=== PATIENT | male | born 1955 | race Caucasian/White ===

== ENCOUNTER 2021-05-24 12:31 | Outpatient (CLI) | payer MEDICARE, BC ==
[~2021-05-24 12:31] MED LIST: Iopamidol 370 76% 100 ML VIAL ONE
[2021-05-24 13:59] LABS: Estimated GFR-MDRD - POC Greater than 90
== END 2021-05-24 12:32 | disposition home or self-care (01) ==
LOC: CT 12:31
PROVIDERS: ATTEND Student in an Organized Health Care Education/Training Program
DX: R59.0 Localized enlarged lymph nodes (principal); M47.812 Spondylosis without myelopathy or radiculopathy, cervical region; Z98.1 Arthrodesis status
CPT/HCPCS: 70491; 82565; Q9967

== ENCOUNTER 2021-07-05 12:30 | Outpatient (CLI) | payer MEDICARE, BC | END 2021-07-05 12:31 | disposition home or self-care (01) | LOC: PET 12:30 | PROVIDERS: ATTEND Internal Medicine Hematology & Oncology | DX: C81.11 Nodular sclerosis Hodgkin lymphoma, lymph nodes of head, face, and neck (principal); R59.0 Localized enlarged lymph nodes; Z79.899 Other long term (current) drug therapy | CPT/HCPCS: 78815; A9552 ==

== ENCOUNTER 2021-07-06 11:05 | Day surgery (SDC) | payer MEDICARE, BC ==
[2021-07-06] MEDS ORDERED: diphenhydrAMINE 25 MG CAP ONE (11:44)
[2021-07-06] MEDS ORDERED: Acetaminophen 500 MG TAB ONE (11:44)
[2021-07-06 14:29] VITALS: BP 158/68; TEMP 98.5
== END 2021-07-06 14:29 | disposition home or self-care (01) ==
LOC: ONC/OP 11:05
PROVIDERS: ATTEND Internal Medicine Hematology & Oncology
PROC: 30233N1 Transfusion of Nonautologous Red Blood Cells into Peripheral Vein, Percutaneous Approach (ICD-10-PCS; principal; 2021-07-06)
DX: D64.9 Anemia, unspecified (principal); D69.6 Thrombocytopenia, unspecified
CPT/HCPCS: 36430; 86850; 86900; 86901; P9016

== ENCOUNTER 2021-07-11 09:00 | Day surgery (SDC) | payer MEDICARE, BC ==
[2021-07-11] MEDS ORDERED: Acetaminophen 500 MG TAB ONE (09:29)
[2021-07-11] MEDS ORDERED: diphenhydrAMINE 25 MG CAP ONE (09:29)
[2021-07-11 11:52] VITALS: TEMP 98
[2021-07-11 14:04] VITALS: BP 118/58
== END 2021-07-11 14:04 | disposition home or self-care (01) ==
LOC: ONC/OP 09:00
PROVIDERS: ATTEND Internal Medicine Hematology & Oncology
PROC: 30233N1 Transfusion of Nonautologous Red Blood Cells into Peripheral Vein, Percutaneous Approach (ICD-10-PCS; principal; 2021-07-11)
DX: D64.9 Anemia, unspecified (principal); D69.6 Thrombocytopenia, unspecified
CPT/HCPCS: 36430; 86850; 86900; 86901; P9016

== ENCOUNTER 2021-07-13 09:38 | Outpatient (CLI) | payer MEDICARE, BC ==
[2021-07-13 19:03] LABS: SARS-CoV-2 PCR by NAA Not Detected (NotDetected)
== END 2021-07-13 09:39 | disposition home or self-care (01) ==
LOC: LABBT 09:38
PROVIDERS: ATTEND Surgery
DX: C81.90 Hodgkin lymphoma, unspecified, unspecified site (principal); Z20.822 Contact with and (suspected) exposure to COVID-19
CPT/HCPCS: U0003; U0005; 80053

== ENCOUNTER 2021-07-16 11:01 | Day surgery (SDC) | payer MEDICARE, BC ==
[2021-07-12 10:53] VITALS: BMI 23.8
[2021-07-16] MEDS ORDERED: fentaNYL Citrate/PF 100 MCG/2 ML SYRINGE ONE (11:38)
[2021-07-16] MEDS ORDERED: PROPOFOL 40 ML ONE (11:39)
[2021-07-16] MEDS ORDERED: EPINEPHrine 1 MG/ML AMP ONE (11:47)
[2021-07-16] MEDS ORDERED: Bupivacaine 0.25% 10 ML VIAL ONE (11:47)
[2021-07-16] MEDS ORDERED: ceFAZolin (BATCH) 2 GM/100 ML BAG ONE (11:59)
== END 2021-07-16 14:10 | disposition home or self-care (01) ==
LOC: SDC 11:01
PROVIDERS: ATTEND Surgery
PROC: 0JH60WZ Insertion of Totally Implantable Vascular Access Device into Chest Subcutaneous Tissue and Fascia, Open Approach (ICD-10-PCS; principal; 2021-07-16)
PROC: 02HV33Z Insertion of Infusion Device into Superior Vena Cava, Percutaneous Approach (ICD-10-PCS; 2021-07-16)
DX: C81.91 Hodgkin lymphoma, unspecified, lymph nodes of head, face, and neck (principal); I10 Essential (primary) hypertension; I25.10 Atherosclerotic heart disease of native coronary artery without angina pectoris; F10.11 Alcohol abuse, in remission; Z87.891 Personal history of nicotine dependence; Z79.02 Long term (current) use of antithrombotics/antiplatelets; Z79.82 Long term (current) use of aspirin; Z79.899 Other long term (current) drug therapy; Z95.1 Presence of aortocoronary bypass graft
CPT/HCPCS: 71045; C1788; J0171; J0690; J1642; J2704; S0020

== ENCOUNTER 2021-07-24 20:11 | Inpatient (IN) | payer MEDICARE, BC ==
[~2021-07-24 20:11] MED LIST changes: -Iopamidol 370 76% 100 ML VIAL ONE; +Iopamidol-370 76% 500 ML 1 ML ONE
[2021-07-24] MEDS ORDERED: Ondansetron PF 4 MG/2 ML Vial ONE (20:24)
[2021-07-24] MEDS ORDERED: Morphine 4 MG/ML VIAL ONE ×2 (20:24→21:23)
[2021-07-24 21:21] LABS: Hemoglobin 8.7 g/dL (14.0-18.0); Mean Corpuscular HGB CONC 31.2 g/dL (32.0-36.0); Mean Corpuscular Hemoglobin 29.3 pg (27.0-31.0); Mean Corpuscular Volume 93.8 fL (78.0-98.0); Mean Platelet Volume 7.4 fL (7.4-10.4); Platelet Count 356 thou/uL (130-400); RBC Distribution Width 14.7 % (11.5-14.5); Red Blood Cell (RBC) Count 2.98 mill/uL (4.70-6.10)
[2021-07-24 21:31] LABS: ALT (SGPT) 24 U/L (8-55); AST (SGOT) 16 U/L (5-34); Albumin 2.7 g/dL (3.4-4.8); Alkaline Phosphatase 204 U/L (40-110); Anion Gap 14 mmol/L (10-20); BUN (Urea Nitrogen) 17 mg/dL (8.4-25.7); Bilirubin, Total 0.6 mg/dL (0.2-1.2); Calc. Creatinine Clearance 0 mL/min (70-130); Carbon Dioxide 22 mmol/L (23-31); Chloride 97 mmol/L (98-107); Globulin 3.3 g/dL (2.4-3.5); Glucose 131 mg/dL (80-115); Potassium 3.7 mmol/L (3.5-5.1); Sodium 129 mmol/L (136-145)
[2021-07-24 21:38] LABS: Band 12 % (5-11); Hypochromia SLIGHT = 6-15 cells (100X) (0-5/hpf); Lymphocytes 7 % (21-51); MDiff Complete? YES; Metamyelocyte 4 % (0-0); Neutrophil 77 % (42-75); Platelet Morphology Comment Appears Adequate; Polychromasia SLIGHT = 2-3 cells (100X) (0-2/hpf)
[2021-07-24 21:41] LABS: Bilirubin Negative (Negative); Blood, Urine Negative (Negative); Clarity Clear (Clear); Glucose, Urine (Dipstick) Normal (Negative); Ketone, Urine Negative (Negative); Leukocyte Negative Leu/uL (Negative); Nitrite Negative (Negative); Protein, Urine (Dipstick) 20 mg/dL (Neg-Trace); Specific Gravity, Urine 1.034 (1.002-1.036); Urobilinogen Normal mg/dL (Less than 2); pH, Urine 5.5 (5.0-9.0)
[2021-07-24] MEDS ORDERED: HYDROmorphone 0.5 MG/0.5 ML SYRINGE ONE (22:00)
[2021-07-24] MEDS ORDERED: Dicyclomine 20 MG TAB ONE (22:36)
[2021-07-24] MEDS ORDERED: Sodium Chloride 0.9% 1,000 ML IV SCH (23:45)
[2021-07-24] MEDS ORDERED: Ondansetron PF 4 MG/2 ML Vial IVP PRN (23:45)
[2021-07-24] MEDS ORDERED: Ondansetron ODT 4 MG TAB SL PRN (23:45)
[2021-07-24] MEDS ORDERED: Acetaminophen 325 MG TAB PO PRN (23:45)
[2021-07-24] MEDS ORDERED: HYDROcodone/Acetaminophen 10/325 mg Tablet PO PRN (23:51)
[2021-07-24] MEDS ORDERED: Mag-Al Plus 1200 MG/1200 MG/120 MG/30 ML UDCUP PO PRN (23:55)
[2021-07-25] MEDS ORDERED: Lactated Ringer's 1,000 ML IV SCH ×2 (00:15→20:35)
[2021-07-25] MEDS: Lactated Ringer's 1,000 ML IV SCH ×2 (01:00→11:34)
[2021-07-25] MEDS ORDERED: diphenhydrAMINE 50 MG/ML VIAL IVP PRN (02:10)
[2021-07-25 06:05] LABS: Band 40 % (5-11); Hemoglobin 9.8 g/dL (14.0-18.0); Hypochromia SLIGHT = 6-15 cells (100X) (0-5/hpf); MDiff Complete? YES; Mean Corpuscular Hemoglobin 28.6 pg (27.0-31.0); Mean Corpuscular Volume 95.4 fL (78.0-98.0); Mean Platelet Volume 8.2 fL (7.4-10.4); Monocytes 3 % (0-10); Neutrophil 57 % (42-75); Platelet Count 381 thou/uL (130-400); Platelet Morphology Comment Appears Adequate; RBC Distribution Width 14.8 % (11.5-14.5); Red Blood Cell (RBC) Count 3.41 mill/uL (4.70-6.10); White Blood Cell (WBC) Count 24.1 thou/uL (4.8-10.8)
[2021-07-25 06:21] LABS: ALT (SGPT) 22 U/L (8-55); AST (SGOT) 12 U/L (5-34); Albumin 2.8 g/dL (3.4-4.8); Alkaline Phosphatase 200 U/L (40-110); Anion Gap 16 mmol/L (10-20); BUN (Urea Nitrogen) 16 mg/dL (8.4-25.7); Bilirubin, Total 0.7 mg/dL (0.2-1.2); Calc. Creatinine Clearance 104 mL/min (70-130); Calcium 9.5 mg/dL (7.8-10.44); Carbon Dioxide 21 mmol/L (23-31); Chloride 99 mmol/L (98-107); Globulin 3.3 g/dL (2.4-3.5); Glucose 100 mg/dL (80-115); Potassium 4.5 mmol/L (3.5-5.1); Protein, Total 6.1 g/dL (5.8-8.1); Sodium 131 mmol/L (136-145)
[2021-07-25] MEDS: Aspirin 81 mg Enteric Coated Tablet PO SCH (08:54)
[2021-07-25] MEDS: Clopidogrel Bisulfate 75 MG TAB PO SCH (08:54)
[2021-07-25] MEDS: Metoprolol Tartrate 100 MG TAB PO SCH ×2 (08:55→22:23)
[2021-07-25] MEDS: Dicyclomine 20 MG TAB PO SCH ×3 (08:55→16:54)
[2021-07-25] MEDS ORDERED: Enoxaparin Sodium 40 MG/0.4 ML SYRINGE SC SCH (09:00)
[2021-07-25] MEDS: HYDROcodone/Acetaminophen 10/325 mg Tablet PO PRN ×2 (09:43→15:06)
[2021-07-25] MEDS: Morphine 4 MG/ML VIAL SLOW IVP PRN ×2 (11:34→16:54)
[2021-07-25] MEDS ORDERED: Heparin 1,000 UNITS/ML VIAL ONE (12:33)
[2021-07-25] MEDS ORDERED: Lisinopril 20 MG TAB PO SCH (21:00)
[2021-07-25] MEDS ORDERED: Enoxaparin Sodium 80 MG/0.8 ML SYRINGE SC SCH (21:00)
[2021-07-25] MEDS ORDERED: Doxazosin Mesylate 4 MG TAB PO SCH (21:00)
[2021-07-25] MEDS ORDERED: Atorvastatin Calcium 40 MG TAB PO SCH (21:00)
[2021-07-25] MEDS ORDERED: Amlodipine 10 MG TAB PO SCH (21:00)
[2021-07-25 21:07] LABS: Lactic Acid 1.6 mmol/L (0.5-2.2)
[2021-07-25 21:12] LABS: ALT (SGPT) 14 U/L (8-55); AST (SGOT) 8 U/L (5-34); Albumin 2.6 g/dL (3.4-4.8); Alkaline Phosphatase 147 U/L (40-110); Anion Gap 15 mmol/L (10-20); BUN (Urea Nitrogen) 18 mg/dL (8.4-25.7); Bilirubin, Total 0.6 mg/dL (0.2-1.2); Calc. Creatinine Clearance 96 mL/min (70-130); Calcium 8.9 mg/dL (7.8-10.44); Carbon Dioxide 21 mmol/L (23-31); Chloride 97 mmol/L (98-107); Globulin 3.3 g/dL (2.4-3.5); Glucose 103 mg/dL (80-115); Potassium 4.8 mmol/L (3.5-5.1); Protein, Total 5.9 g/dL (5.8-8.1); Sodium 128 mmol/L (136-145)
[2021-07-25] MEDS ORDERED: Labetalol HCl 100 MG/20 ML VIAL SLOW IVP PRN (22:19)
[2021-07-25] MEDS ORDERED: Vancomycin 1.5 GM in Premix Bag 1 BAG IVPB SCH (22:45)
[2021-07-25] MEDS ORDERED: Piperacillin/Tazobactam 3.375 GM in Sodium Chloride 0.9% 100 ML IVPB SCH ×2 (22:45→23:59)
[2021-07-25] MEDS ORDERED: Fentanyl 250 MCG/5 ML VIAL ONE (22:46)
[2021-07-25] MEDS ORDERED: PHENYLEPHRINE-NS 100 MCG/ML 10 ML SYRINGE ONE (23:09)
[2021-07-25] MEDS ORDERED: ePHEDrine 50 MG/ML VIAL ONE (23:09)
[2021-07-25] MEDS ORDERED: Lidocaine 1% PF 5 ML VIAL ONE (23:09)
[2021-07-25] MEDS ORDERED: Rocuronium Bromide 10 MG/ML (10ML VIAL) ONE (23:09)
[2021-07-25] MEDS ORDERED: Succinylcholine 200 MG/10 ml SYRINGE FS ONE (23:09)
[2021-07-25] MEDS ORDERED: Albumin 5% 500 ML ONE (23:34)
[2021-07-25] MEDS ORDERED: Albumin 5% 250 ML ONE (23:34)
[2021-07-25] MEDS ORDERED: Phenylephrine 10 MG/ML VIAL ONE (23:54)
[2021-07-26] MEDS ORDERED: Neomycin-Polymyxin 1 ML AMP ONE (00:36)
[2021-07-26] MEDS ORDERED: Dextrose 50% Abboject 50 ML SYRINGE SLOW IVP PRN (01:11)
[2021-07-26] MEDS ORDERED: Promethazine HCl 25 MG/ML VIAL IM PRN (01:11)
[2021-07-26] MEDS ORDERED: Morphine 4 MG/ML VIAL SLOW IVP PRN (01:11)
[2021-07-26] MEDS ORDERED: hydrALAZINE 20 MG/ML VIAL SLOW IVP PRN (01:11)
[2021-07-26] MEDS ORDERED: Ondansetron PF 4 MG/2 ML Vial IVP PRN (01:11)
[2021-07-26] MEDS ORDERED: Dextrose 5% in Water 1,000 ML IV PRN (01:11)
[2021-07-26] MEDS ORDERED: Ventilator Sedation Protocol 1 EACH FS ONE (01:14)
[2021-07-26] MEDS ORDERED: Propofol 1,000 MG/100 ML VIAL IV ONE (01:20)
[2021-07-26] MEDS ORDERED: fentaNYL Citrate-0.9 % NaCl/PF 100 ML IVPB SCH (01:30)
[2021-07-26] MEDS ORDERED: DISCONTINUE PREVIOUS NARCOTIC PAIN MEDICATIONS AND BENZODIAZEPINES FS SCH (01:30)
[2021-07-26] MEDS ORDERED: Fentanyl BOLUS 250 ML IVPB PRN (01:30)
[2021-07-26] MEDS ORDERED: Lorazepam 2 MG/ML VIAL SLOW IVP PRN (01:30)
[2021-07-26] MEDS ORDERED: Propofol 1,000 MG/100 ML VIAL IV PRN (01:30)
[2021-07-26] MEDS ORDERED: Morphine 2 MG/ML VIAL SLOW IVP PRN (01:30)
[2021-07-26] MEDS ORDERED: Propofol BOLUS 1,000 MG/100 ML VIAL IV PRN (01:30)
[2021-07-26] MEDS: Lactated Ringer's 1,000 ML IV SCH ×3 (01:52→17:57)
[2021-07-26] MEDS ORDERED: Lactated Ringer's 1,000 ML IV SCH (02:00)
[2021-07-26 02:30] LABS: Actual Bicarbonate (HCO3a) 20.6 mEq/L (22-28); CO2 Tension 35.4 mmHg (35.0-45.0); Calcium, Ionized (arterial) 1.13 mmol/L (1.12-1.30); Carboxyhemoglobin (COHb) 0.6 gm% (0.0-3.0); Hemoglobin (Hb) 7.6 g/dL (14.0-18.0); Potassium - ABG Lab 4.14 mmol/L (3.70-5.30); pH, Arterial 7.38 (7.35-7.45)
[2021-07-26 02:33] LABS: Puncture Site LRA
[2021-07-26] MEDS: Piperacillin/Tazobactam 3.375 GM in Sodium Chloride 0.9% 100 ML IVPB SCH ×3 (03:19→20:13)
[2021-07-26] MEDS ORDERED: Piperacillin/Tazobactam 3.375 GM in Sodium Chloride 0.9% 100 ML IVPB SCH (04:00)
[2021-07-26 04:20] LABS: Lactic Acid 1.9 mmol/L (0.5-2.2)
[2021-07-26 04:30] LABS: ALT (SGPT) 10 U/L (8-55); AST (SGOT) 8 U/L (5-34); Albumin 2.3 g/dL (3.4-4.8); Alkaline Phosphatase 108 U/L (40-110); Anion Gap 14 mmol/L (10-20); BUN (Urea Nitrogen) 18 mg/dL (8.4-25.7); Bilirubin, Total 0.8 mg/dL (0.2-1.2); Calc. Creatinine Clearance 102 mL/min (70-130); Calcium 7.8 mg/dL (7.8-10.44); Carbon Dioxide 21 mmol/L (23-31); Chloride 100 mmol/L (98-107); Globulin 1.9 g/dL (2.4-3.5); Glucose 109 mg/dL (80-115); Potassium 4.5 mmol/L (3.5-5.1); Protein, Total 4.2 g/dL (5.8-8.1); Sodium 130 mmol/L (136-145)
[2021-07-26 07:25] LABS: Mean Corpuscular HGB CONC 29.5 g/dL (32.0-36.0); Mean Corpuscular Hemoglobin 29.6 pg (27.0-31.0); Mean Platelet Volume 8.1 fL (7.4-10.4); Platelet Count 212 thou/uL (130-400); RBC Distribution Width 14.9 % (11.5-14.5); Red Blood Cell (RBC) Count 2.69 mill/uL (4.70-6.10); White Blood Cell (WBC) Count 0.8 thou/uL (4.8-10.8)
[2021-07-26 07:28] LABS: Lymphocytes 40 % (21-51); MDiff Complete? YES; Macrocytosis SLIGHT = 6-15 cells (100X) (0-5/hpf); Monocytes 4 % (0-10); Neutrophil 56 % (42-75); Platelet Morphology Comment Appears Adequate; Polychromasia SLIGHT = 2-3 cells (100X) (0-2/hpf)
[2021-07-26] MEDS: Pantoprazole 40 MG VIAL IVP SCH ×2 (10:16→20:13)
[2021-07-26] MEDS: Aspirin 81 mg Enteric Coated Tablet PO SCH (10:17)
[2021-07-26] MEDS: Metoprolol Tartrate 100 MG TAB PO SCH (10:17)
[2021-07-26] MEDS: Clopidogrel Bisulfate 75 MG TAB PO SCH (10:17)
[2021-07-26] MEDS: VANCOMYCIN 1.25 GM/250 ML BAG 1.25 GM in Premix Bag 1 BAG IVPB SCH (13:21)
[2021-07-26] MEDS ORDERED: CALCIUM GLUCONATE IV SCH (14:00)
[2021-07-26] MEDS ORDERED: [UNRECOGNIZED DRUG - OTHER] IV SCH (14:00)
[2021-07-26] MEDS ORDERED: SODIUM ACETATE IV SCH (14:00)
[2021-07-26] MEDS ORDERED: POTASSIUM CHLORIDE IV SCH (14:00)
[2021-07-26] MEDS ORDERED: Iopamidol 300 61% 50 ML VIAL FS ONE (14:11)
[2021-07-26] MEDS: Morphine 2 MG/ML VIAL SLOW IVP PRN ×2 (14:36→18:00)
[2021-07-26] MEDS: SELENIUM IV SCH (15:40)
[2021-07-26] MEDS: MULTIVITAMINS IV SCH (15:40)
[2021-07-26] MEDS: ZINC IV SCH (15:40)
[2021-07-26] MEDS: [UNRECOGNIZED DRUG - OTHER] IV SCH (15:40)
[2021-07-26] MEDS: MANGANESE IV SCH (15:40)
[2021-07-26] MEDS: COPPER IV SCH (15:40)
[2021-07-26] MEDS: Enoxaparin Sodium 40 MG/0.4 ML SYRINGE SC SCH (20:13)
[2021-07-27] MEDS: Lactated Ringer's 1,000 ML IV SCH ×2 (00:02→10:31)
[2021-07-27] MEDS: VANCOMYCIN 1.25 GM/250 ML BAG 1.25 GM in Premix Bag 1 BAG IVPB SCH (00:02)
[2021-07-27] MEDS: Morphine 2 MG/ML VIAL SLOW IVP PRN ×2 (00:03→09:57)
[2021-07-27] MEDS: Piperacillin/Tazobactam 3.375 GM in Sodium Chloride 0.9% 100 ML IVPB SCH ×3 (04:54→21:39)
[2021-07-27 05:30] LABS: Anion Gap 12 mmol/L (10-20); BUN (Urea Nitrogen) 15 mg/dL (8.4-25.7); Calc. Creatinine Clearance 119 mL/min (70-130); Calcium 7.8 mg/dL (7.8-10.44); Carbon Dioxide 21 mmol/L (23-31); Chloride 104 mmol/L (98-107); Glucose 129 mg/dL (80-115); Potassium 3.7 mmol/L (3.5-5.1); Sodium 133 mmol/L (136-145)
[2021-07-27 05:54] LABS: Hemoglobin 6.3 g/dL (14.0-18.0); Mean Corpuscular HGB CONC 31.1 g/dL (32.0-36.0); Mean Corpuscular Hemoglobin 29.6 pg (27.0-31.0); Mean Corpuscular Volume 95.3 fL (78.0-98.0); Mean Platelet Volume 7.8 fL (7.4-10.4); Platelet Count 191 thou/uL (130-400); RBC Distribution Width 14.5 % (11.5-14.5); Red Blood Cell (RBC) Count 2.14 mill/uL (4.70-6.10); White Blood Cell (WBC) Count 0.2 thou/uL (4.8-10.8)
[2021-07-27 06:15] LABS: Platelet Morphology Comment Appears Adequate
[2021-07-27] MEDS: Pantoprazole 40 MG VIAL IVP SCH ×2 (09:56→21:40)
[2021-07-27 11:14] LABS: Vancomycin, Trough 16.3 ug/mL
[2021-07-27] MEDS ORDERED: Fluconazole In NaCl,Iso-Osm 800 MG in Premix Bag 1 BAG IVPB SCH (12:00)
[2021-07-27] MEDS ORDERED: MD-Gastroview 120 ML BOT ONE (12:12)
[2021-07-27] MEDS ORDERED: Fluconazole In NaCl,Iso-Osm 400 MG in Premix Bag 1 BAG IVPB SCH (12:15)
[2021-07-27] MEDS ORDERED: Metoprolol Tartrate 100 MG TAB PO SCH ×2 (12:45→21:00)
[2021-07-27] MEDS ORDERED: [UNRECOGNIZED DRUG - OTHER] IV SCH (14:00)
[2021-07-27] MEDS ORDERED: SODIUM ACETATE IV SCH (14:00)
[2021-07-27] MEDS ORDERED: MULTIVITAMINS IV SCH (14:00)
[2021-07-27] MEDS ORDERED: [UNRECOGNIZED DRUG - OTHER] IV SCH (14:00)
[2021-07-27] MEDS ORDERED: FAT EMULSION IV SCH ×2 (14:00)
[2021-07-27] MEDS ORDERED: Metoprolol Tartrate 5 MG/5 ML VIAL IVP SCH ×2 (14:00→23:30)
[2021-07-27] MEDS ORDERED: ZINC IV SCH (14:00)
[2021-07-27] MEDS ORDERED: POTASSIUM CHLORIDE IV SCH (14:00)
[2021-07-27] MEDS ORDERED: MANGANESE IV SCH (14:00)
[2021-07-27] MEDS ORDERED: SELENIUM IV SCH (14:00)
[2021-07-27] MEDS ORDERED: COPPER IV SCH (14:00)
[2021-07-27] MEDS: Morphine 4 MG/ML VIAL SLOW IVP PRN ×2 (17:08→23:40)
[2021-07-27] MEDS: Fluconazole In NaCl,Iso-Osm 400 MG in Premix Bag 1 BAG IVPB SCH (18:38)
[2021-07-27] MEDS: Enoxaparin Sodium 40 MG/0.4 ML SYRINGE SC SCH (21:40)
[2021-07-28] MEDS ORDERED: Metoprolol Tartrate 5 MG/5 ML VIAL IVP SCH (03:00)
[2021-07-28] MEDS: Piperacillin/Tazobactam 3.375 GM in Sodium Chloride 0.9% 100 ML IVPB SCH ×3 (03:57→20:34)
[2021-07-28 05:27] LABS: ALT (SGPT) 9 U/L (8-55); AST (SGOT) 8 U/L (5-34); Albumin 2.1 g/dL (3.4-4.8); Alkaline Phosphatase 123 U/L (40-110); Anion Gap 11 mmol/L (10-20); BUN (Urea Nitrogen) 15 mg/dL (8.4-25.7); Bilirubin, Total 1.3 mg/dL (0.2-1.2); Calc. Creatinine Clearance 129 mL/min (70-130); Calcium 8.2 mg/dL (7.8-10.44); Carbon Dioxide 24 mmol/L (23-31); Chloride 104 mmol/L (98-107); Globulin 2.9 g/dL (2.4-3.5); Glucose 129 mg/dL (80-115); Potassium 3.3 mmol/L (3.5-5.1); Sodium 136 mmol/L (136-145)
[2021-07-28 05:44] LABS: Hemoglobin 7.9 g/dL (14.0-18.0); Mean Corpuscular HGB CONC 30.8 g/dL (32.0-36.0); Mean Corpuscular Hemoglobin 29.2 pg (27.0-31.0); Mean Platelet Volume 8.1 fL (7.4-10.4); Platelet Count 176 thou/uL (130-400); RBC Distribution Width 14.1 % (11.5-14.5); Red Blood Cell (RBC) Count 2.71 mill/uL (4.70-6.10); White Blood Cell (WBC) Count 0.2 thou/uL (4.8-10.8)
[2021-07-28] MEDS ORDERED: Potassium Chloride 20 MEQ in Premix Bag 1 BAG IVPB SCH (08:15)
[2021-07-28] MEDS: Fluconazole In NaCl,Iso-Osm 400 MG in Premix Bag 1 BAG IVPB SCH ×2 (09:09→16:54)
[2021-07-28] MEDS: Pantoprazole 40 MG VIAL IVP SCH ×2 (09:10→20:33)
[2021-07-28] MEDS: TBO-Filgrastim 300 MCG/0.5 ML VIAL SC SCH (12:27)
[2021-07-28] MEDS: SELENIUM IV SCH (14:06)
[2021-07-28] MEDS: MULTIVITAMINS IV SCH (14:06)
[2021-07-28] MEDS: MANGANESE IV SCH (14:06)
[2021-07-28] MEDS: ZINC IV SCH (14:06)
[2021-07-28] MEDS: [UNRECOGNIZED DRUG - OTHER] IV SCH (14:06)
[2021-07-28] MEDS: COPPER IV SCH (14:06)
[2021-07-28 17:40] LABS: Actual Bicarbonate (HCO3a) 26.6 mEq/L (22-28); Base Excess (BEa) -0.9 mEq/L (-2.0 to +3.0); Calcium, Ionized (arterial) 1.25 mmol/L (1.12-1.30); Carboxyhemoglobin (COHb) 0.6 gm% (0.0-3.0); Hemoglobin (Hb) 8.7 g/dL (14.0-18.0); O2 Tension (PaO2), arterial 66.5 mmHg (> 80.0); Potassium - ABG Lab 3.24 mmol/L (3.70-5.30); pH, Arterial 7.26 (7.35-7.45)
[2021-07-28 17:45] LABS: CO2 Tension 60.4 mmHg (35.0-45.0); Puncture Site RRA
[2021-07-28] MEDS ORDERED: Dexmedetomidine In 0.9 % NaCl 100 ML IVPB SCH (19:45)
[2021-07-28] MEDS: Morphine 4 MG/ML VIAL SLOW IVP PRN (20:28)
[2021-07-28] MEDS: Enoxaparin Sodium 40 MG/0.4 ML SYRINGE SC SCH (20:34)
[2021-07-28 22:05] LABS: Actual Bicarbonate (HCO3a) 25.1 mEq/L (22-28); Base Excess (BEa) 0.3 mEq/L (-2.0 to +3.0); CO2 Tension 41.1 mmHg (35.0-45.0); Calcium, Ionized (arterial) 1.22 mmol/L (1.12-1.30); Carboxyhemoglobin (COHb) 0.3 gm% (0.0-3.0); O2 Tension (PaO2), arterial 74.6 mmHg (> 80.0); Potassium - ABG Lab 3.24 mmol/L (3.70-5.30)
[2021-07-28 22:07] LABS: Puncture Site RRA
[2021-07-28 22:08] LABS: ALV-art Gradient 87.925 mmHg (0-20)
[2021-07-29] MEDS: Morphine 4 MG/ML VIAL SLOW IVP PRN (03:43)
[2021-07-29] MEDS: Piperacillin/Tazobactam 3.375 GM in Sodium Chloride 0.9% 100 ML IVPB SCH ×3 (03:44→20:57)
[2021-07-29 04:17] LABS: Hemoglobin 7.6 g/dL (14.0-18.0); Mean Corpuscular HGB CONC 28.9 g/dL (32.0-36.0); Mean Corpuscular Hemoglobin 29.6 pg (27.0-31.0); Mean Platelet Volume 8.1 fL (7.4-10.4); Platelet Count 149 thou/uL (130-400); RBC Distribution Width 14.3 % (11.5-14.5); Red Blood Cell (RBC) Count 2.58 mill/uL (4.70-6.10); White Blood Cell (WBC) Count 0.3 thou/uL (4.8-10.8)
[2021-07-29 07:39] LABS: Albumin 2.1 g/dL (3.4-4.8)
[2021-07-29 07:40] LABS: Calcium 8.5 mg/dL (7.8-10.44); Chloride 106 mmol/L (98-107); Potassium 3.2 mmol/L (3.5-5.1); Sodium 139 mmol/L (136-145)
[2021-07-29 07:41] LABS: Globulin 2.9 g/dL (2.4-3.5)
[2021-07-29 07:42] LABS: Anion Gap 10 mmol/L (10-20); Carbon Dioxide 26 mmol/L (23-31)
[2021-07-29 07:43] LABS: Bilirubin, Total 0.9 mg/dL (0.2-1.2)
[2021-07-29 07:44] LABS: Alkaline Phosphatase 109 U/L (40-110); Calc. Creatinine Clearance 130 mL/min (70-130)
[2021-07-29 07:45] LABS: BUN (Urea Nitrogen) 19 mg/dL (8.4-25.7)
[2021-07-29 07:46] LABS: AST (SGOT) 8 U/L (5-34)
[2021-07-29 07:47] LABS: ALT (SGPT) 9 U/L (8-55)
[2021-07-29 08:12] LABS: Glucose 139 mg/dL (80-115)
[2021-07-29] MEDS ORDERED: Rocuronium Bromide 10 MG/ML (10ML VIAL) ONE (09:51)
[2021-07-29] MEDS ORDERED: Fentanyl BOLUS 250 ML IVPB PRN (10:30)
[2021-07-29] MEDS ORDERED: DISCONTINUE PREVIOUS NARCOTIC PAIN MEDICATIONS AND BENZODIAZEPINES FS SCH (10:30)
[2021-07-29] MEDS ORDERED: Propofol BOLUS 1,000 MG/100 ML VIAL IV PRN (10:30)
[2021-07-29] MEDS ORDERED: Ventilator Sedation Protocol 1 EACH FS SCH (10:30)
[2021-07-29] MEDS ORDERED: Rocuronium Bromide 50 MG/5 ML VIAL IVP SCH (10:30)
[2021-07-29] MEDS ORDERED: Morphine 4 MG/ML VIAL SLOW IVP PRN (10:30)
[2021-07-29 10:57] LABS: Actual Bicarbonate (HCO3a) 26.2 mEq/L (22-28); Base Excess (BEa) 0.5 mEq/L (-2.0 to +3.0); CO2 Tension 48.3 mmHg (35.0-45.0); Calcium, Ionized (arterial) 1.25 mmol/L (1.12-1.30); Carboxyhemoglobin (COHb) 0.5 gm% (0.0-3.0); Hemoglobin (Hb) 7.9 g/dL (14.0-18.0); O2 Tension (PaO2), arterial 64.1 mmHg (> 80.0); Potassium - ABG Lab 3.08 mmol/L (3.70-5.30); pH, Arterial 7.35 (7.35-7.45)
[2021-07-29 10:58] LABS: ALV-art Gradient 89.425 mmHg (0-20); Puncture Site RRA
[2021-07-29] MEDS: Potassium Chloride 20 MEQ in Premix Bag 1 BAG IVPB SCH ×2 (11:35→15:05)
[2021-07-29] MEDS: Fluconazole In NaCl,Iso-Osm 400 MG in Premix Bag 1 BAG IVPB SCH (11:38)
[2021-07-29] MEDS: Pantoprazole 40 MG VIAL IVP SCH ×2 (11:39→20:58)
[2021-07-29] MEDS: VANCOMYCIN 1.25 GM/250 ML BAG 1.25 GM in Premix Bag 1 BAG IVPB SCH ×2 (11:40→23:27)
[2021-07-29] MEDS: Lorazepam 2 MG/ML VIAL SLOW IVP PRN ×4 (12:19→18:53)
[2021-07-29] MEDS ORDERED: Cefepime 2 GM in Sodium Chloride 0.9% 100 ML IVPB SCH (14:00)
[2021-07-29] MEDS: ZINC IV SCH (14:20)
[2021-07-29] MEDS: COPPER IV SCH (14:20)
[2021-07-29] MEDS: MANGANESE IV SCH (14:20)
[2021-07-29] MEDS: MULTIVITAMINS IV SCH (14:20)
[2021-07-29] MEDS: SELENIUM IV SCH (14:20)
[2021-07-29] MEDS: [UNRECOGNIZED DRUG - OTHER] IV SCH (14:20)
[2021-07-29] MEDS: Enoxaparin Sodium 40 MG/0.4 ML SYRINGE SC SCH (20:58)
[2021-07-29] MEDS: TBO-Filgrastim 300 MCG/0.5 ML VIAL SC SCH (20:59)
[2021-07-29] MEDS: Propofol 1,000 MG/100 ML VIAL IV PRN (21:05)
[2021-07-30] MEDS: fentaNYL Citrate-0.9 % NaCl/PF 100 ML IV SCH ×2 (02:57→21:07)
[2021-07-30] MEDS: Piperacillin/Tazobactam 3.375 GM in Sodium Chloride 0.9% 100 ML IVPB SCH (04:53)
[2021-07-30 05:05] LABS: ALT (SGPT) 11 U/L (8-55); AST (SGOT) 8 U/L (5-34); Alkaline Phosphatase 111 U/L (40-110); Anion Gap 12 mmol/L (10-20); BUN (Urea Nitrogen) 27 mg/dL (8.4-25.7); Calc. Creatinine Clearance 115 mL/min (70-130); Calcium 8.8 mg/dL (7.8-10.44); Carbon Dioxide 23 mmol/L (23-31); Chloride 106 mmol/L (98-107); Globulin 2.9 g/dL (2.4-3.5); Glucose 108 mg/dL (80-115); Potassium 3.5 mmol/L (3.5-5.1); Protein, Total 4.9 g/dL (5.8-8.1); Sodium 137 mmol/L (136-145)
[2021-07-30 05:30] LABS: White Blood Cell (WBC) Count 0.7 thou/uL (4.8-10.8)
[2021-07-30 06:40] LABS: Hemoglobin 8.1 g/dL (14.0-18.0); Mean Corpuscular HGB CONC 29.7 g/dL (32.0-36.0); Mean Corpuscular Hemoglobin 28.4 pg (27.0-31.0); Mean Corpuscular Volume 95.8 fL (78.0-98.0); Mean Platelet Volume 9.3 fL (7.4-10.4); Platelet Count 154 thou/uL (130-400); RBC Distribution Width 14.6 % (11.5-14.5); Red Blood Cell (RBC) Count 2.85 mill/uL (4.70-6.10)
[2021-07-30 06:55] LABS: Band 12 % (5-11); Eosinophils 4 % (0-10); Lymphocytes 40 % (21-51); MDiff Complete? YES; Monocytes 8 % (0-10); Neutrophil 36 % (42-75)
[2021-07-30] MEDS: Pantoprazole 40 MG VIAL IVP SCH ×2 (08:56→21:31)
[2021-07-30] MEDS: Fluconazole In NaCl,Iso-Osm 400 MG in Premix Bag 1 BAG IVPB SCH (08:56)
[2021-07-30] MEDS ORDERED: TBO-Filgrastim 300 MCG/0.5 ML VIAL SC SCH (09:15)
[2021-07-30] MEDS: TBO-Filgrastim 300 MCG/0.5 ML VIAL SC SCH (10:18)
[2021-07-30] MEDS ORDERED: LYTES IN TPN IVPB PRN (11:05)
[2021-07-30] MEDS: VANCOMYCIN 1.25 GM/250 ML BAG 1.25 GM in Premix Bag 1 BAG IVPB SCH (11:16)
[2021-07-30] MEDS: Cefepime 2 GM in Sodium Chloride 0.9% 100 ML IVPB SCH ×2 (13:59→21:30)
[2021-07-30] MEDS: metroNIDAZOLE 500 MG in Premix Bag 1 BAG IVPB SCH ×2 (14:14→21:23)
[2021-07-30] MEDS: Propofol 1,000 MG/100 ML VIAL IV PRN (14:32)
[2021-07-30] MEDS: COPPER IV SCH (14:33)
[2021-07-30] MEDS: ZINC IV SCH (14:33)
[2021-07-30] MEDS: SELENIUM IV SCH (14:33)
[2021-07-30] MEDS: [UNRECOGNIZED DRUG - OTHER] IV SCH (14:33)
[2021-07-30] MEDS: MULTIVITAMINS IV SCH (14:33)
[2021-07-30] MEDS: MANGANESE IV SCH (14:33)
[2021-07-30] MEDS ORDERED: Iopamidol-370 76% 500 ML 1 ML ONE (14:54)
[2021-07-30] MEDS: Enoxaparin Sodium 40 MG/0.4 ML SYRINGE SC SCH (21:32)
[2021-07-31] MEDS: Vancomycin 1 GM in Premix Bag 1 BAG IVPB SCH ×2 (00:20→12:26)
[2021-07-31 04:47] LABS: Hemoglobin 7.7 g/dL (14.0-18.0); Mean Corpuscular HGB CONC 31.8 g/dL (32.0-36.0); Mean Corpuscular Hemoglobin 30.5 pg (27.0-31.0); Mean Platelet Volume 9.4 fL (7.4-10.4); Platelet Count 182 thou/uL (130-400); RBC Distribution Width 14.6 % (11.5-14.5); Red Blood Cell (RBC) Count 2.53 mill/uL (4.70-6.10); White Blood Cell (WBC) Count 2.3 thou/uL (4.8-10.8)
[2021-07-31 05:16] LABS: ALT (SGPT) 11 U/L (8-55); AST (SGOT) 9 U/L (5-34); Albumin 1.9 g/dL (3.4-4.8); Alkaline Phosphatase 100 U/L (40-110); Anion Gap 11 mmol/L (10-20); BUN (Urea Nitrogen) 35 mg/dL (8.4-25.7); Bilirubin, Total 1.5 mg/dL (0.2-1.2); Calc. Creatinine Clearance 95 mL/min (70-130); Calcium 8.8 mg/dL (7.8-10.44); Carbon Dioxide 24 mmol/L (23-31); Chloride 106 mmol/L (98-107); Globulin 2.8 g/dL (2.4-3.5); Glucose 127 mg/dL (80-115); Magnesium 1.9 mg/dL (1.6-2.6); Potassium 3.5 mmol/L (3.5-5.1); Protein, Total 4.7 g/dL (5.8-8.1); Sodium 137 mmol/L (136-145)
[2021-07-31 05:20] LABS: Band 49 % (5-11); Eosinophils 1 % (0-10); Lymphocytes 19 % (21-51); MDiff Complete? YES; Metamyelocyte 2 % (0-0); Monocytes 5 % (0-10); Myelocyte 1 % (0-0); Neutrophil 23 % (42-75)
[2021-07-31] MEDS: metroNIDAZOLE 500 MG in Premix Bag 1 BAG IVPB SCH ×3 (05:41→22:05)
[2021-07-31] MEDS: Cefepime 2 GM in Sodium Chloride 0.9% 100 ML IVPB SCH ×3 (05:42→21:48)
[2021-07-31] MEDS: Propofol 1,000 MG/100 ML VIAL IV PRN ×2 (06:23→21:29)
[2021-07-31 07:35] LABS: Actual Bicarbonate (HCO3a) 21.1 mEq/L (22-28); Base Excess (BEa) -3.9 mEq/L (-2.0 to +3.0); CO2 Tension 38.2 mmHg (35.0-45.0); Calcium, Ionized (arterial) 1.25 mmol/L (1.12-1.30); Carboxyhemoglobin (COHb) 0.8 gm% (0.0-3.0); Hemoglobin (Hb) 8.1 g/dL (14.0-18.0); O2 Tension (PaO2), arterial 79.3 mmHg (> 80.0); Potassium - ABG Lab 3.45 mmol/L (3.70-5.30); pH, Arterial 7.36 (7.35-7.45)
[2021-07-31 07:42] LABS: Puncture Site LRA
[2021-07-31] MEDS: Pantoprazole 40 MG VIAL IVP SCH ×2 (08:47→21:47)
[2021-07-31] MEDS: Fluconazole In NaCl,Iso-Osm 400 MG in Premix Bag 1 BAG IVPB SCH (08:47)
[2021-07-31] MEDS: ZINC IV SCH (14:41)
[2021-07-31] MEDS: COPPER IV SCH (14:41)
[2021-07-31] MEDS: MANGANESE IV SCH (14:41)
[2021-07-31] MEDS: SELENIUM IV SCH (14:41)
[2021-07-31] MEDS: [UNRECOGNIZED DRUG - OTHER] IV SCH (14:41)
[2021-07-31] MEDS: MULTIVITAMINS IV SCH (14:41)
[2021-07-31] MEDS: fentaNYL Citrate-0.9 % NaCl/PF 100 ML IV SCH (15:30)
[2021-07-31] MEDS: Enoxaparin Sodium 40 MG/0.4 ML SYRINGE SC SCH (21:47)
[2021-08-01 04:18] LABS: ALT (SGPT) Less than 7 U/L (8-55); AST (SGOT) 7 U/L (5-34); Albumin 1.8 g/dL (3.4-4.8); Alkaline Phosphatase 90 U/L (40-110); Anion Gap 13 mmol/L (10-20); BUN (Urea Nitrogen) 40 mg/dL (8.4-25.7); Bilirubin, Total 1.8 mg/dL (0.2-1.2); Calc. Creatinine Clearance 76 mL/min (70-130); Calcium 8.6 mg/dL (7.8-10.44); Carbon Dioxide 20 mmol/L (23-31); Chloride 108 mmol/L (98-107); Globulin 3.1 g/dL (2.4-3.5); Glucose 110 mg/dL (80-115); Potassium 3.5 mmol/L (3.5-5.1); Protein, Total 4.9 g/dL (5.8-8.1); Sodium 137 mmol/L (136-145)
[2021-08-01] MEDS: Vancomycin 1 GM in Premix Bag 1 BAG IVPB SCH (04:33)
[2021-08-01 05:26] LABS: Band 57 % (5-11); Eosinophils 3 % (0-10); Hemoglobin 8.5 g/dL (14.0-18.0); Lymphocytes 7 % (21-51); MDiff Complete? YES; Mean Corpuscular HGB CONC 31.2 g/dL (32.0-36.0); Mean Corpuscular Hemoglobin 29.6 pg (27.0-31.0); Mean Corpuscular Volume 94.9 fL (78.0-98.0); Mean Platelet Volume 9.7 fL (7.4-10.4); Metamyelocyte 6 % (0-0); Monocytes 3 % (0-10); Myelocyte 2 % (0-0); Neutrophil 22 % (42-75); Platelet Count 221 thou/uL (130-400); RBC Distribution Width 15.9 % (11.5-14.5); Red Blood Cell (RBC) Count 2.87 mill/uL (4.70-6.10); White Blood Cell (WBC) Count 6.8 thou/uL (4.8-10.8)
[2021-08-01] MEDS: Cefepime 2 GM in Sodium Chloride 0.9% 100 ML IVPB SCH ×3 (05:26→21:29)
[2021-08-01] MEDS: metroNIDAZOLE 500 MG in Premix Bag 1 BAG IVPB SCH ×3 (05:28→21:26)
[2021-08-01] MEDS: fentaNYL Citrate-0.9 % NaCl/PF 100 ML IV SCH (08:00)
[2021-08-01] MEDS: Propofol 1,000 MG/100 ML VIAL IV PRN ×2 (08:01→22:11)
[2021-08-01] MEDS: Fluconazole In NaCl,Iso-Osm 400 MG in Premix Bag 1 BAG IVPB SCH (09:14)
[2021-08-01] MEDS: Pantoprazole 40 MG VIAL IVP SCH ×2 (09:15→21:26)
[2021-08-01] MEDS ORDERED: Lactated Ringer's 1,000 ML IV SCH ×2 (10:45→20:15)
[2021-08-01 13:28] VITALS: BMI 24.3
[2021-08-01] MEDS: SELENIUM IV SCH (14:18)
[2021-08-01] MEDS: MANGANESE IV SCH (14:18)
[2021-08-01] MEDS: [UNRECOGNIZED DRUG - OTHER] IV SCH (14:18)
[2021-08-01] MEDS: COPPER IV SCH (14:18)
[2021-08-01] MEDS: MULTIVITAMINS IV SCH (14:18)
[2021-08-01] MEDS: ZINC IV SCH (14:18)
[2021-08-01] MEDS ORDERED: Vancomycin 1 GM in Premix Bag 1 BAG IVPB SCH (17:00)
[2021-08-01] MEDS: Enoxaparin Sodium 40 MG/0.4 ML SYRINGE SC SCH (21:24)
[2021-08-02] MEDS: fentaNYL Citrate-0.9 % NaCl/PF 100 ML IV SCH ×2 (00:39→17:51)
[2021-08-02 04:18] LABS: Hemoglobin 8.1 g/dL (14.0-18.0); Mean Corpuscular HGB CONC 30.4 g/dL (32.0-36.0); Mean Corpuscular Hemoglobin 29.3 pg (27.0-31.0); Mean Corpuscular Volume 96.5 fL (78.0-98.0); Mean Platelet Volume 9.9 fL (7.4-10.4); Platelet Count 244 thou/uL (130-400); RBC Distribution Width 15.8 % (11.5-14.5); Red Blood Cell (RBC) Count 2.78 mill/uL (4.70-6.10); White Blood Cell (WBC) Count 10.2 thou/uL (4.8-10.8)
[2021-08-02 04:29] LABS: ALT (SGPT) Less than 7 U/L (8-55); AST (SGOT) 9 U/L (5-34); Albumin 1.8 g/dL (3.4-4.8); Alkaline Phosphatase 96 U/L (40-110); Anion Gap 11 mmol/L (10-20); BUN (Urea Nitrogen) 53 mg/dL (8.4-25.7); Bilirubin, Total 1.2 mg/dL (0.2-1.2); Calc. Creatinine Clearance 55 mL/min (70-130); Calcium 8.8 mg/dL (7.8-10.44); Carbon Dioxide 20 mmol/L (23-31); Chloride 109 mmol/L (98-107); Glucose 137 mg/dL (80-115); Potassium 3.8 mmol/L (3.5-5.1); Protein, Total 4.8 g/dL (5.8-8.1); Sodium 136 mmol/L (136-145)
[2021-08-02 04:40] LABS: Band 59 % (5-11); Lymphocytes 4 % (21-51); MDiff Complete? YES; Metamyelocyte 1 % (0-0); Monocytes 1 % (0-10); Myelocyte 2 % (0-0); Neutrophil 33 % (42-75)
[2021-08-02] MEDS: Cefepime 2 GM in Sodium Chloride 0.9% 100 ML IVPB SCH ×2 (05:23→17:50)
[2021-08-02] MEDS: metroNIDAZOLE 500 MG in Premix Bag 1 BAG IVPB SCH ×3 (05:23→21:26)
[2021-08-02] MEDS: Propofol 1,000 MG/100 ML VIAL IV PRN (05:24)
[2021-08-02] MEDS: Fluconazole In NaCl,Iso-Osm 400 MG in Premix Bag 1 BAG IVPB SCH (09:45)
[2021-08-02] MEDS: Pantoprazole 40 MG VIAL IVP SCH ×2 (09:46→21:26)
[2021-08-02] MEDS: Lactated Ringer's 1,000 ML IV SCH ×2 (09:56→19:35)
[2021-08-02] MEDS: MANGANESE IV SCH (14:52)
[2021-08-02] MEDS: MULTIVITAMINS IV SCH (14:52)
[2021-08-02] MEDS: [UNRECOGNIZED DRUG - OTHER] IV SCH (14:52)
[2021-08-02] MEDS: SELENIUM IV SCH (14:52)
[2021-08-02] MEDS: ZINC IV SCH (14:52)
[2021-08-02] MEDS: COPPER IV SCH (14:52)
[2021-08-02] MEDS: Enoxaparin Sodium 40 MG/0.4 ML SYRINGE SC SCH (21:26)
[2021-08-03] MEDS: Propofol 1,000 MG/100 ML VIAL IV PRN ×2 (01:15→13:58)
[2021-08-03] MEDS: Lactated Ringer's 1,000 ML IV SCH (04:11)
[2021-08-03 04:50] LABS: ALT (SGPT) Less than 7 U/L (8-55); AST (SGOT) 12 U/L (5-34); Albumin 1.8 g/dL (3.4-4.8); Alkaline Phosphatase 94 U/L (40-110); Anion Gap 12 mmol/L (10-20); BUN (Urea Nitrogen) 60 mg/dL (8.4-25.7); Bilirubin, Total 0.9 mg/dL (0.2-1.2); Calc. Creatinine Clearance 50 mL/min (70-130); Calcium 8.9 mg/dL (7.8-10.44); Carbon Dioxide 19 mmol/L (23-31); Chloride 108 mmol/L (98-107); Glucose 119 mg/dL (80-115); Protein, Total 4.8 g/dL (5.8-8.1); Sodium 135 mmol/L (136-145)
[2021-08-03 05:04] LABS: Anisocytosis SLIGHT = 6-15 cells (100X) (0-5/hpf); Band 43 % (5-11); Hemoglobin 8.2 g/dL (14.0-18.0); Hypochromia SLIGHT = 6-15 cells (100X) (0-5/hpf); Lymphocytes 10 % (21-51); MDiff Complete? YES; Macrocytosis SLIGHT = 6-15 cells (100X) (0-5/hpf); Mean Corpuscular HGB CONC 30.5 g/dL (32.0-36.0); Mean Corpuscular Hemoglobin 29.3 pg (27.0-31.0); Mean Corpuscular Volume 96.3 fL (78.0-98.0); Mean Platelet Volume 10.1 fL (7.4-10.4); Metamyelocyte 3 % (0-0); Monocytes 2 % (0-10); Myelocyte 3 % (0-0); Neutrophil 39 % (42-75); Platelet Count 300 thou/uL (130-400); Platelet Morphology Comment Appears Adequate; RBC Distribution Width 15.8 % (11.5-14.5); Red Blood Cell (RBC) Count 2.81 mill/uL (4.70-6.10); Toxic Granulation SLIGHT; White Blood Cell (WBC) Count 13.9 thou/uL (4.8-10.8)
[2021-08-03] MEDS: metroNIDAZOLE 500 MG in Premix Bag 1 BAG IVPB SCH ×3 (05:17→21:54)
[2021-08-03] MEDS: Cefepime 2 GM in Sodium Chloride 0.9% 100 ML IVPB SCH ×2 (05:17→20:13)
[2021-08-03] MEDS ORDERED: Albumin 25% 25 GM/100 ML BOT IVPB SCH (06:45)
[2021-08-03 07:39] LABS: Actual Bicarbonate (HCO3a) 19.9 mEq/L (22-28); Base Excess (BEa) -5.5 mEq/L (-2.0 to +3.0); CO2 Tension 38.7 mmHg (35.0-45.0); Calcium, Ionized (arterial) 1.24 mmol/L (1.12-1.30); Carboxyhemoglobin (COHb) 0.3 gm% (0.0-3.0); Hemoglobin (Hb) 8.6 g/dL (14.0-18.0); Potassium - ABG Lab 3.91 mmol/L (3.70-5.30); pH, Arterial 7.33 (7.35-7.45)
[2021-08-03 07:41] LABS: ALV-art Gradient 148.075 mmHg (0-20); O2 Tension (PaO2), arterial 53.1 mmHg (> 80.0); Puncture Site LRA
[2021-08-03] MEDS ORDERED: Furosemide 20 MG/2 ML VIAL SLOW IVP SCH (07:45)
[2021-08-03] MEDS: Fluconazole In NaCl,Iso-Osm 400 MG in Premix Bag 1 BAG IVPB SCH (10:34)
[2021-08-03] MEDS: Pantoprazole 40 MG VIAL IVP SCH ×2 (10:35→20:14)
[2021-08-03] MEDS: Vancomycin 1 GM in Premix Bag 1 BAG IVPB SCH (12:38)
[2021-08-03] MEDS: Micafungin 100 MG in Sodium Chloride 0.9% 100 ML IVPB SCH (12:38)
[2021-08-03] MEDS: ZINC IV SCH (14:17)
[2021-08-03] MEDS: COPPER IV SCH (14:17)
[2021-08-03] MEDS: MULTIVITAMINS IV SCH (14:17)
[2021-08-03] MEDS: [UNRECOGNIZED DRUG - OTHER] IV SCH (14:17)
[2021-08-03] MEDS: MANGANESE IV SCH (14:17)
[2021-08-03] MEDS: SELENIUM IV SCH (14:17)
[2021-08-03] MEDS: fentaNYL Citrate-0.9 % NaCl/PF 100 ML IV SCH (14:22)
[2021-08-03] MEDS: Enoxaparin Sodium 40 MG/0.4 ML SYRINGE SC SCH (20:13)
[2021-08-04] MEDS: Propofol 1,000 MG/100 ML VIAL IV PRN (01:35)
[2021-08-04 04:36] LABS: Band 42 % (5-11); Hemoglobin 7.7 g/dL (14.0-18.0); Hypochromia SLIGHT = 6-15 cells (100X) (0-5/hpf); Lymphocytes 3 % (21-51); MDiff Complete? YES; Mean Corpuscular HGB CONC 30.1 g/dL (32.0-36.0); Mean Corpuscular Volume 96.4 fL (78.0-98.0); Mean Platelet Volume 9.3 fL (7.4-10.4); Metamyelocyte 1 % (0-0); Monocytes 8 % (0-10); Neutrophil 46 % (42-75); Platelet Count 394 thou/uL (130-400); Platelet Morphology Comment Appears Adequate; RBC Distribution Width 15.9 % (11.5-14.5); Red Blood Cell (RBC) Count 2.66 mill/uL (4.70-6.10); White Blood Cell (WBC) Count 15.9 thou/uL (4.8-10.8)
[2021-08-04 04:41] LABS: ALT (SGPT) Less than 7 U/L (8-55); AST (SGOT) 12 U/L (5-34); Alkaline Phosphatase 94 U/L (40-110); Anion Gap 12 mmol/L (10-20); BUN (Urea Nitrogen) 69 mg/dL (8.4-25.7); Bilirubin, Total 0.7 mg/dL (0.2-1.2); Calc. Creatinine Clearance 41 mL/min (70-130); Calcium 8.8 mg/dL (7.8-10.44); Carbon Dioxide 18 mmol/L (23-31); Chloride 109 mmol/L (98-107); Globulin 2.9 g/dL (2.4-3.5); Glucose 123 mg/dL (80-115); Potassium 4.1 mmol/L (3.5-5.1); Protein, Total 4.9 g/dL (5.8-8.1); Sodium 135 mmol/L (136-145)
[2021-08-04] MEDS: metroNIDAZOLE 500 MG in Premix Bag 1 BAG IVPB SCH ×3 (05:30→20:41)
[2021-08-04] MEDS: Cefepime 2 GM in Sodium Chloride 0.9% 100 ML IVPB SCH ×2 (05:30→17:33)
[2021-08-04 07:14] LABS: Actual Bicarbonate (HCO3a) 18.2 mEq/L (22-28); Base Excess (BEa) -9.2 mEq/L (-2.0 to +3.0); CO2 Tension 45.7 mmHg (35.0-45.0); Calcium, Ionized (arterial) 1.28 mmol/L (1.12-1.30); Carboxyhemoglobin (COHb) 0.4 gm% (0.0-3.0); Hemoglobin (Hb) 10.6 g/dL (14.0-18.0); Potassium - ABG Lab 4.08 mmol/L (3.70-5.30)
[2021-08-04 07:26] LABS: O2 Tension (PaO2), arterial 55.8 mmHg (> 80.0); Puncture Site LRA; pH, Arterial 7.22 (7.35-7.45)
[2021-08-04 07:27] LABS: ALV-art Gradient 172.275 mmHg (0-20)
[2021-08-04] MEDS ORDERED: Furosemide 20 MG/2 ML VIAL SLOW IVP SCH (08:00)
[2021-08-04] MEDS: fentaNYL Citrate-0.9 % NaCl/PF 100 ML IV SCH (08:31)
[2021-08-04] MEDS: Pantoprazole 40 MG VIAL IVP SCH ×2 (08:38→20:41)
[2021-08-04 09:15] LABS: Vancomycin, Trough 25.8 ug/mL
[2021-08-04] MEDS ORDERED: Xylocaine 1% w/ Epi 1:100K 10 ML VIAL ONE (10:05)
[2021-08-04] MEDS ORDERED: PROPOFOL 20 ML ONE (10:13)
[2021-08-04] MEDS ORDERED: Fentanyl 100 MCG/2 ML VIAL ONE (10:14)
[2021-08-04] MEDS ORDERED: Lidocaine 1% (PF) 30 ML VIAL NERVE BLCK SCH (10:15)
[2021-08-04] MEDS ORDERED: Lidocaine 1% PF 5 ML VIAL NERVE BLCK SCH (10:15)
[2021-08-04] MEDS ORDERED: Lidocaine 1% (PF) 30 ML VIAL ONE (10:25)
[2021-08-04] MEDS ORDERED: Fentanyl 100 MCG/2 ML VIAL SLOW IVP SCH (10:30)
[2021-08-04] MEDS ORDERED: PROPOFOL 200 MG/20 ML VIAL IV SCH (10:30)
[2021-08-04] MEDS: Vancomycin 1 GM in Premix Bag 1 BAG IVPB SCH (12:08)
[2021-08-04 12:12] LABS: Bilirubin Negative (Negative); Blood, Urine Trace (Negative); Clarity Turbid (Clear); Glucose, Urine (Dipstick) Normal (Negative); Ketone, Urine Negative (Negative); Leukocyte Negative Leu/uL (Negative); Nitrite Negative (Negative); Protein, Urine (Dipstick) 30 mg/dL (Neg-Trace); RBC/HPF 0-3 HPF (0-3); Specific Gravity, Urine 1.011 (1.002-1.036); Squamous Epithelial 0-3 HPF (0-3); Urobilinogen Normal mg/dL (Less than 2); WBC/HPF 0-3 HPF (0-3)
[2021-08-04 12:13] LABS: Bacteria/HPF 1+ HPF (None Seen)
[2021-08-04] MEDS: Micafungin 100 MG in Sodium Chloride 0.9% 100 ML IVPB SCH (13:29)
[2021-08-04] MEDS: SELENIUM IV SCH (13:56)
[2021-08-04] MEDS: MANGANESE IV SCH (13:56)
[2021-08-04] MEDS: COPPER IV SCH (13:56)
[2021-08-04] MEDS: ZINC IV SCH (13:56)
[2021-08-04] MEDS: [UNRECOGNIZED DRUG - OTHER] IV SCH (13:56)
[2021-08-04] MEDS: MULTIVITAMINS IV SCH (13:56)
[2021-08-04] MEDS: Enoxaparin Sodium 40 MG/0.4 ML SYRINGE SC SCH (20:41)
[2021-08-05] MEDS: fentaNYL Citrate-0.9 % NaCl/PF 100 ML IV SCH (01:32)
[2021-08-05 04:58] LABS: Anisocytosis SLIGHT = 6-15 cells (100X) (0-5/hpf); Band 23 % (5-11); Hemoglobin 7.6 g/dL (14.0-18.0); Hypochromia SLIGHT = 6-15 cells (100X) (0-5/hpf); Lymphocytes 1 % (21-51); MDiff Complete? YES; Mean Corpuscular HGB CONC 30.9 g/dL (32.0-36.0); Mean Corpuscular Hemoglobin 29.4 pg (27.0-31.0); Mean Corpuscular Volume 95.1 fL (78.0-98.0); Mean Platelet Volume 9.3 fL (7.4-10.4); Metamyelocyte 2 % (0-0); Monocytes 6 % (0-10); Myelocyte 1 % (0-0); Neutrophil 67 % (42-75); Platelet Count 485 thou/uL (130-400); Platelet Morphology Comment Appears Increased; Polychromasia SLIGHT = 2-3 cells (100X) (0-2/hpf); Red Blood Cell (RBC) Count 2.58 mill/uL (4.70-6.10); White Blood Cell (WBC) Count 17.7 thou/uL (4.8-10.8)
[2021-08-05] MEDS: metroNIDAZOLE 500 MG in Premix Bag 1 BAG IVPB SCH ×2 (05:39→14:08)
[2021-08-05] MEDS: Cefepime 2 GM in Sodium Chloride 0.9% 100 ML IVPB SCH (05:39)
[2021-08-05 05:44] LABS: Anion Gap 11 mmol/L (10-20); BUN (Urea Nitrogen) 76 mg/dL (8.4-25.7); Calc. Creatinine Clearance 36 mL/min (70-130); Carbon Dioxide 19 mmol/L (23-31); Chloride 109 mmol/L (98-107); Potassium 4.1 mmol/L (3.5-5.1); Sodium 135 mmol/L (136-145)
[2021-08-05 05:45] LABS: ALT (SGPT) Less than 7 U/L (8-55); AST (SGOT) 12 U/L (5-34); Alkaline Phosphatase 103 U/L (40-110); Bilirubin, Total 0.7 mg/dL (0.2-1.2); Calcium 8.5 mg/dL (7.8-10.44); Glucose 127 mg/dL (80-115)
[2021-08-05 07:00] LABS: Actual Bicarbonate (HCO3a) 17.5 mEq/L (22-28); Base Excess (BEa) -8.5 mEq/L (-2.0 to +3.0); CO2 Tension 37.9 mmHg (35.0-45.0); Calcium, Ionized (arterial) 1.23 mmol/L (1.12-1.30); Carboxyhemoglobin (COHb) 0.2 gm% (0.0-3.0); Hemoglobin (Hb) 8.4 g/dL (14.0-18.0); O2 Tension (PaO2), arterial 64.2 mmHg (> 80.0); Potassium - ABG Lab 4.08 mmol/L (3.70-5.30); pH, Arterial 7.28 (7.35-7.45)
[2021-08-05 07:05] LABS: ALV-art Gradient 137.975 mmHg (0-20); Puncture Site RRA
[2021-08-05] MEDS: Pantoprazole 40 MG VIAL IVP SCH (09:19)
[2021-08-05] MEDS: Propofol 1,000 MG/100 ML VIAL IV PRN (09:19)
[2021-08-05 10:21] VITALS: BP 133/72
[2021-08-05] MEDS: Micafungin 100 MG in Sodium Chloride 0.9% 100 ML IVPB SCH (11:34)
[2021-08-05 12:43] VITALS: TEMP 99.8
[2021-08-05 12:58] LABS: Vancomycin, Trough 28.9 ug/mL
[2021-08-05] MEDS ORDERED: MULTIVITAMINS IV SCH (14:00)
[2021-08-05] MEDS ORDERED: ZINC IV SCH (14:00)
[2021-08-05] MEDS ORDERED: MANGANESE IV SCH (14:00)
[2021-08-05] MEDS ORDERED: SELENIUM IV SCH (14:00)
[2021-08-05] MEDS ORDERED: [UNRECOGNIZED DRUG - OTHER] IV SCH (14:00)
[2021-08-05] MEDS ORDERED: COPPER IV SCH (14:00)
[2021-08-05] MEDS ORDERED: Acetylcysteine 10% 100 MG/ML 30 ml Vial INH SCH (15:00)
[2021-08-05] MEDS ORDERED: Morphine 10 MG/ML VIAL SLOW IVP SCH (15:30)
[2021-08-05] MEDS: Lorazepam 2 MG/ML VIAL SLOW IVP PRN ×3 (16:12→21:42)
[2021-08-05] MEDS: Morphine 2 MG/ML VIAL SLOW IVP PRN ×4 (16:48→23:44)
[2021-08-06] MEDS: Lorazepam 2 MG/ML VIAL SLOW IVP PRN (00:48)
[2021-08-06] MEDS ORDERED: Vancomycin HCl 500 MG in Sodium Chloride 0.9% 100 ML IVPB SCH (13:00)
[2021-08-10 15:17] LABS: Fungus Stain Final report (.)
== END 2021-08-06 03:17 | disposition expired | DRG 326 ==
LOC: ERS 20:11 → MSONC 22:36 → OBSVTOIN 07-25 11:00 → CCU 07-25 22:19 → MSONC 07-26 21:56 → IMCU/EMU 07-27 16:51 → CCU 07-29 09:41 → T4-B 08-05 19:15
PROVIDERS: ADMIT Family Medicine; ATTEND Family Medicine
PROC: 3E03329 Introduction of Other Anti-infective into Peripheral Vein, Percutaneous Approach (ICD-10-PCS; 2021-07-25)
PROC: 0DU907Z Supplement Duodenum with Autologous Tissue Substitute, Open Approach (ICD-10-PCS; principal; 2021-07-26)
PROC: 0DN60ZZ Release Stomach, Open Approach (ICD-10-PCS; 2021-07-26)
PROC: 3E033XZ Introduction of Vasopressor into Peripheral Vein, Percutaneous Approach (ICD-10-PCS; 2021-07-26)
PROC: B518ZZA Fluoroscopy of Superior Vena Cava, Guidance (ICD-10-PCS; 2021-07-26)
PROC: 02HV33Z Insertion of Infusion Device into Superior Vena Cava, Percutaneous Approach (ICD-10-PCS; 2021-07-26)
PROC: 3E0436Z Introduction of Nutritional Substance into Central Vein, Percutaneous Approach (ICD-10-PCS; 2021-07-26)
PROC: 0W9G0ZZ Drainage of Peritoneal Cavity, Open Approach (ICD-10-PCS; 2021-07-26)
PROC: 0WQF0ZZ Repair Abdominal Wall, Open Approach (ICD-10-PCS; 2021-07-26)
PROC: 30233N1 Transfusion of Nonautologous Red Blood Cells into Peripheral Vein, Percutaneous Approach (ICD-10-PCS; 2021-07-27)
PROC: 5A09357 Assistance with Respiratory Ventilation, Less than 24 Consecutive Hours, Continuous Positive Airway Pressure (ICD-10-PCS; 2021-07-27)
PROC: 5A1955Z Respiratory Ventilation, Greater than 96 Consecutive Hours (ICD-10-PCS; 2021-07-29)
PROC: 0BH18EZ Insertion of Endotracheal Airway into Trachea, Via Natural or Artificial Opening Endoscopic (ICD-10-PCS; 2021-07-29)
PROC: 0D9670Z Drainage of Stomach with Drainage Device, Via Natural or Artificial Opening (ICD-10-PCS; 2021-07-30)
PROC: 0BCJ8ZZ Extirpation of Matter from Left Lower Lung Lobe, Via Natural or Artificial Opening Endoscopic (ICD-10-PCS; 2021-08-04)
PROC: 0BC78ZZ Extirpation of Matter from Left Main Bronchus, Via Natural or Artificial Opening Endoscopic (ICD-10-PCS; 2021-08-04)
PROC: 0BCB8ZZ Extirpation of Matter from Left Lower Lobe Bronchus, Via Natural or Artificial Opening Endoscopic (ICD-10-PCS; 2021-08-05)
PROC: 0BC78ZZ Extirpation of Matter from Left Main Bronchus, Via Natural or Artificial Opening Endoscopic (ICD-10-PCS; 2021-08-05)
PROC: 0BCB8ZZ Extirpation of Matter from Left Lower Lobe Bronchus, Via Natural or Artificial Opening Endoscopic (ICD-10-PCS; 2021-08-05)
DX: K26.5 Chronic or unspecified duodenal ulcer with perforation (principal); K65.9 Peritonitis, unspecified; D61.810 Antineoplastic chemotherapy induced pancytopenia; J96.02 Acute respiratory failure with hypercapnia; J96.01 Acute respiratory failure with hypoxia; J15.9 Unspecified bacterial pneumonia; G93.41 Metabolic encephalopathy; A41.9 Sepsis, unspecified organism; K52.1 Toxic gastroenteritis and colitis; C81.90 Hodgkin lymphoma, unspecified, unspecified site; J98.11 Atelectasis; N17.9 Acute kidney failure, unspecified; T17.890A Other foreign object in other parts of respiratory tract causing asphyxiation, initial encounter; D62 Acute posthemorrhagic anemia; E87.2 Acidosis; T81.41XA Infection following a procedure, superficial incisional surgical site, initial encounter; Z66 Do not resuscitate; Z51.5 Encounter for palliative care; Z20.822 Contact with and (suspected) exposure to COVID-19; E78.5 Hyperlipidemia, unspecified; I25.10 Atherosclerotic heart disease of native coronary artery without angina pectoris; F10.10 Alcohol abuse, uncomplicated; F17.210 Nicotine dependence, cigarettes, uncomplicated; T45.1X5A Adverse effect of antineoplastic and immunosuppressive drugs, initial encounter; K66.8 Other specified disorders of peritoneum; E78.00 Pure hypercholesterolemia, unspecified; D70.1 Agranulocytosis secondary to cancer chemotherapy; N18.30 Chronic kidney disease, stage 3 unspecified; D63.8 Anemia in other chronic diseases classified elsewhere; I12.9 Hypertensive chronic kidney disease with stage 1 through stage 4 chronic kidney disease, or unspecified chronic kidney disease; Z92.21 Personal history of antineoplastic chemotherapy; Z79.82 Long term (current) use of aspirin; Z79.899 Other long term (current) drug therapy; Z98.890 Other specified postprocedural states; Z95.5 Presence of coronary angioplasty implant and graft; Z98.49 Cataract extraction status, unspecified eye; Z95.1 Presence of aortocoronary bypass graft; I25.2 Old myocardial infarction; Z87.19 Personal history of other diseases of the digestive system; Z78.1 Physical restraint status; Y95 Nosocomial condition; Z28.310 Unvaccinated for COVID-19; B96.89 Other specified bacterial agents as the cause of diseases classified elsewhere
CPT/HCPCS: 31624; 36415; 36416; 36430; 36569; 36600; 71045; 74174; 74177; 74240; 80048; 80053; 80202; 81001; 81003; 82805; 83605; 83735; 83880; 84145; 84443; 84484; 85025; 85060; 85652; 86141; 86850; 86900; 86901; 87040; 87070; 87077; 87081; 87102; 87186; 87205; 87206; 89190; 93005; 93010; 94002; 94003; 94640; 94660; 94760; 96361; 96372; 96374; 96375; 96376; C1751; C9113; G0378; J0692; J1170; J1200; J1447; J1450; J1644; J1650; J1940; J1956; J2060; J2248; J2270; J2370; J2405; J2543; J2704; J3010; J3370; J3480; J3490; J7120; J7620; P9016; P9045; P9047; Q9963; Q9967